=== PATIENT | female | born 1995 | race Caucasian/White ===

== ENCOUNTER → 2018-11-26 | Outpatient (CLI) | payer OTHER ==
[~2018-11-26] MED LIST: BIRTH CONTROL; PHENA100 PO; SULTRIDS PO
== END | disposition home or self-care (01) ==
LOC: LAB EV 19:49 → LAB SHORT 19:49
DX: N39.0 Urinary tract infection, site not specified (principal)
CPT/HCPCS: 87077; 87086; 87186